=== PATIENT | female | born 1965 | race African-American/Black ===

== ENCOUNTER 2016-05-27 18:04 | Observation (INO) | payer MEDICAID ==
[2016-05-27] MEDS ORDERED: Albuterol/Ipratropium 3.0-0.5 MG/3 ML Neb Soln NEB ONE ×2 (18:07→19:14)
[2016-05-27] MEDS ORDERED: Sodium Chloride 0.9% 1,000 ML IV ONE (18:07)
[2016-05-27] MEDS ORDERED: methylPREDNISolone Sodium Succinate 125 MG/2 ML SDV IVPUSH ONE (18:08)
[2016-05-27] MEDS ORDERED: Sodium Chloride 0.9% 2.5 ML Syringe FLUSH PRN (18:08)
[2016-05-27] MEDS ORDERED: Sodium Chloride 0.9% 10 ML Syringe FLUSH PRN (18:08)
--- NOTE | 2016-05-27 18:17 | EDM.PDOC ---
ED HISTORY OF PRESENT ILLNESS - General Chief Complaint: Respiratory Problem Stated Complaint: HARD TIME BREATHING Time Seen by Provider: 05/27/16 18:06 - History of Present Illness INITIAL COMMENTS - FREE TEXT/NARRATIVE: HISTORY AND PHYSICAL: History of present illness: The patient is a 50-year-old female with no stated medical problems, either cardiac or pulmonary, with a long-standing history of tobacco use and quit for one month but recently restarted smoking over the last one week. Patient states she has been having shortness of breath and intermittent dry hacking and spastic cough even before she stoped smoking which is why she tried to quit. She says that her shortness of breath would be waxing and waning in intensity and the cough also waxes and wanes. She states that over the last 24-48 hours it has worsened and she is much tighter and has much more difficulty moving air and has bilateral chest discomfort with her breathing. She has had no leg pain , calf tenderness or leg asymmetry no fevers no chills no sore throat or runny nose. The cough is nonproductive and she says that last night she got into a spasm of coughing that lasted seemingly for a very long time. Patient states she also feels like her abdomen is slightly bloated but she is not having any vomiting and but she has had some issues with constipation. She has no kidney function issues that she is aware of and has been passing her urine normally. Patient admits that her blood pressure has been on the high side in the past but she does not take medication and has not seen a doctor in many years. She currently denies any headache neurosensory changes in her extremities or weakness in her extremities. She has no neck or back pain. Patient admits that she drinks a lot of caffeine and eats a lot of salt. The patient denies drug use except occasional marijuana and does drink wine several times per week but denies any use today. Review of systems: As per history of present illness and below otherwise all systems reviewed and negative. Past medical history: As per history of present illness and as reviewed below otherwise noncontributory. Surgical history: As per history of present illness and as reviewed below otherwise noncontributory. Social history: No reported history of drug or alcohol abuse. Family history: As per history of present illness and as reviewed below otherwise noncontributory. Physical exam: General: Well-developed well-nourished female who speaks with some breathlessness but no hoarseness and was somewhat tearful and soft-spoken Vital signs have been noted by me. HEENT: Atraumatic, normocephalic, pupils reactive, negative for conjunctival pallor or scleral icterus, mucous membranes moist, throat clear, neck supple, nontender, trachea midline. No cervical adenopathy or nuchal rigidity Lungs: Very diminished breath sounds throughout all garza with tight expiratory wheeze heard in the bases right greater than left. There is some minimal assessment muscle use and work of breathing, breath sounds equal bilaterally, chest nontender. Heart: S1S2, regular rhythm and slightly tachycardic rate of my evaluation, negative for clicks, rubs, or JVD. Abdomen: Soft, nondistended, nontender. There is no rebound or guarding and bowel sounds are hypoactive but there is no tympany on percussion Negative for masses or hepatosplenomegaly. Negative for costovertebral tenderness. Pelvis: Stable nontender. Genitourinary: Deferred. Rectal: Deferred. Extremities: Atraumatic, negative for cords or calf pain. Neurovascular unremarkable. No pedal edema or leg asymmetry Neuro: Awake, alert, oriented. Cranial nerves II through XII unremarkable. Cerebellum unremarkable. Motor and sensory unremarkable throughout. Exam nonfocal. Diagnostics: EKG chest x-ray CBC CMP troponin lactic acid alcohol level but cultures as indicated BNP Therapeutics: IV O2 monitor duo neb Solu-Medrol IV fluids 0: The patient just returned from x-ray and I have reevaluated her; she is still very tight with her air exchange but she is more open and has a looser cough but still has some fine expiratory wheezing and tight air exchange. She does feel better and we will continue with our workup. I told her that I have a very low threshold for admission due to her presentation and examination. 190: Case was discussed with our hospitalist Dr. Jovel who agrees for admission and states that he will address her blood pressure on this admission after he gets the remainder of her blood work. I discussed this care plan with the patient who is agreeable and we will give her another duo neb. Impression: Dyspnea/ bronchospasm/bronchitis, hypertension Definitive disposition and diagnosis as appropriate pending reevaluation and review of above. 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: Musculoskeletal History: Reports: None Neurological History: Reports: None Psychiatric History: Reports: Anxiety Endocrine/Metabolic History: Reports: None Hematologic History: Reports: None Immunologic History: Reports: None Oncologic (Cancer) History: Reports: None Dermatologic History: Reports: None - Infectious Disease History Infectious Disease History: Reports: None - Past Surgical History Female Surgical History: Reports: section Social & Family History - Family History Family Medical History: Noncontributory - Tobacco Use Smoking Status *Q: Current Every Day Smoker Years of Tobacco use: 10 Packs/Tins Daily: 1 - Caffeine Use Caffeine Use: Reports: Coffee, Tea - Recreational Drug Use Recreational Drug Use: No ED ROS GENERAL - Review of Systems Review Of Systems: ROS reveals no pertinent complaints other than HPI. ED EXAM, GENERAL - Physical Exam Exam: See Below (See dictation) Course - Vital Signs Last Recorded V/S: Last Vital Signs Temp 36.4 C 05/27/16 18:32 Pulse 115 H 05/27/16 18:32 Resp 20 05/27/16 18:32 BP 181/131 H 05/27/16 18:32 Pulse Ox 97 05/27/16 18:32 - Orders/Labs/Meds Orders: Active Orders 24 hr Category Date Time Status Cardiac Monitoring [RC] . DIRECTED Care 05/27/16 18:07 Active EKG Documentation Completion [RC] STAT Care 05/27/16 18:07 Active Oxygen Therapy, ED [RC] ASDIRECTED Care 05/27/16 18:07 Active Pulse Oximetry [RC] ASDIRECTED Care 05/27/16 18:07 Active RT Aerosol Therapy [RC] ASDIRECTED Care 05/27/16 18:08 Active Chest 2V [CR] Stat Exams 05/27/16 18:07 Taken COMPREHENSIVE METABOLIC PN,CMP [CHEM] Stat Lab 05/27/16 18:30 Received ETHANOL BLOOD MEDICAL [CHEM] Stat Lab 05/27/16 18:30 Received Sodium Chloride 0.9% [Saline Flush] Med 05/27/16 18:08 Active 10 ml FLUSH ASDIRECTED PRN Sodium Chloride 0.9% [Saline Flush] Med 05/27/16 18:08 Active 2.5 ml FLUSH ASDIRECTED PRN Saline Lock Insert [OM.PC] Stat Oth 05/27/16 18:07 Ordered Medication Orders Sodium Chloride (Saline Flush) 10 ml FLUSH ASDIRECTED PRN PRN Reason: Keep Vein Open Sodium Chloride (Saline Flush) 2.5 ml FLUSH ASDIRECTED PRN PRN Reason: Keep Vein Open Labs: Laboratory Tests 05/27/16 05/27/16 05/27/16 Range/Units 18:30 18:30 18:30 WBC 6.91 (4.0-11.0) K/uL RBC 5.12 (4.30-5.90) M/uL Hgb 14.5 (12.0-16.0) g/dL Hct 46.0 (36.0-46.0) % MCV 89.8 (80.0-98.0) fL MCH 28.3 (27.0-32.0) pg MCHC 31.5 (31.0-37.0) g/dL RDW Std Deviation 48.1 (28.0-62.0) fl RDW Coeff of Sherman 15 (11.0-15.0) % Plt Count 237 (150-400) K/uL MPV 10.60 (7.40-12.00) fL Neut % (Auto) 52.5 (48.0-80.0) % Lymph % (Auto) 41.0 H (16.0-40.0) % Beckham % (Auto) 4.5 (0.0-15.0) % Eos % (Auto) 1.7 (0.0-7.0) % Baso % (Auto) 0.3 (0.0-1.5) % Neut # (Auto) 3.6 (1.4-5.7) K/uL Lymph # (Auto) 2.8 H (0.6-2.4) K/uL Beckham # (Auto) 0.3 (0.0-0.8) K/uL Eos # (Auto) 0.1 (0.0-0.7) K/uL Baso # (Auto) 0.0 (0.0-0.1) K/uL Nucleated RBC % 0.0 /100WBC Nucleated RBCs # 0 K/uL Lactate 1.4 (0.20-2.00) mmol/L Troponin I < 0.10 (0.0-0.29) NG/ML B-Natriuretic Peptide (<100) PG/ML 05/27/16 Range/Units 18:30 WBC (4.0-11.0) K/uL RBC (4.30-5.90) M/uL Hgb (12.0-16.0) g/dL Hct (36.0-46.0) % MCV (80.0-98.0) fL MCH (27.0-32.0) pg MCHC (31.0-37.0) g/dL RDW Std Deviation (28.0-62.0) fl RDW Coeff of Sherman (11.0-15.0) % Plt Count (150-400) K/uL MPV (7.40-12.00) fL Neut % (Auto) (48.0-80.0) % Lymph % (Auto) (16.0-40.0) % Beckham % (Auto) (0.0-15.0) % Eos % (Auto) (0.0-7.0) % Baso % (Auto) (0.0-1.5) % Neut # (Auto) (1.4-5.7) K/uL Lymph # (Auto) (0.6-2.4) K/uL Beckham # (Auto) (0.0-0.8) K/uL Eos # (Auto) (0.0-0.7) K/uL Baso # (Auto) (0.0-0.1) K/uL Nucleated RBC % /100WBC Nucleated RBCs # K/uL Lactate (0.20-2.00) mmol/L Troponin I (0.0-0.29) NG/ML B-Natriuretic Peptide 19 (<100) PG/ML Meds: Medications Generic Name Dose Route Start Last Admin Trade Name Freq PRN Reason Stop Dose Admin Sodium Chloride 10 ml 05/27/16 18:08 Saline Flush FLUSH ASDIRECTED PRN Keep Vein Open Sodium Chloride 2.5 ml 05/27/16 18:08 Saline Flush FLUSH ASDIRECTED PRN Keep Vein Open Discontinued Medications Generic Name Dose Route Start Last Admin Trade Name Ramiro PRN Reason Stop Dose Admin Albuterol/Ipratropium 3 ml 05/27/16 18:07 05/27/16 18:12 Duoneb 3.0-0.5 Mg/3 Ml NEB 05/27/16 18:08 3 ml ONETIME ONE Administration Sodium Chloride 1,000 mls @ 999 mls/hr 05/27/16 18:07 05/27/16 18:25 Normal Saline IV 05/27/16 19:07 999 mls/hr STAT ONE Administration Methylprednisolone Sodium Succinate 125 mg 05/27/16 18:08 05/27/16 18:25 Solu-Medrol IVPUSH 05/27/16 18:09 125 mg ONETIME ONE Administration Departure - Departure Time of Disposition: 19:13 Disposition: Refer to Observation Condition: good Clinical Impression: Bronchospasm, Dyspnea Forms: ED Department Discharge - My Orders Last 24 Hours: My Active Orders 05/27/16 18:07 Cardiac Monitoring [RC] . DIRECTED EKG Documentation Completion [RC] STAT Oxygen Therapy, ED [RC] ASDIRECTED Pulse Oximetry [RC] ASDIRECTED Chest 2V [CR] Stat Saline Lock Insert [OM.PC] Stat 05/27/16 18:08 RT Aerosol Therapy [RC] ASDIRECTED Sodium Chloride 0.9% [Saline Flush] 10 ml FLUSH ASDIRECTED PRN Sodium Chloride 0.9% [Saline Flush] 2.5 ml FLUSH ASDIRECTED PRN 05/27/16 18:30 COMPREHENSIVE METABOLIC PN,CMP [CHEM] Stat ETHANOL BLOOD MEDICAL [CHEM] Stat - Assessment/Plan Last 24 Hours: My Active Orders 05/27/16 18:07 Cardiac Monitoring [RC] . DIRECTED EKG Documentation Completion [RC] STAT Oxygen Therapy, ED [RC] ASDIRECTED Pulse Oximetry [RC] ASDIRECTED Chest 2V [CR] Stat Saline Lock Insert [OM.PC] Stat 05/27/16 18:08 RT Aerosol Therapy [RC] ASDIRECTED Sodium Chloride 0.9% [Saline Flush] 10 ml FLUSH ASDIRECTED PRN Sodium Chloride 0.9% [Saline Flush] 2.5 ml FLUSH ASDIRECTED PRN 05/27/16 18:30 COMPREHENSIVE METABOLIC PN,CMP [CHEM] Stat ETHANOL BLOOD MEDICAL [CHEM] Stat
[2016-05-27 19:12] LABS: CHLORIDE,CL 112 mmol/L (98-110); SODIUM,NA 144 mmol/L (136-146)
[2016-05-27] MEDS ORDERED: Enoxaparin 40 MG/0.4 ML Syringe SUBCUT SCH (21:00)
--- NOTE | 2016-05-27 21:03 | PCM.HP ---
[id number] yo female who complains of shortness of breath. For the past several months she reports increasing exertional dyspnea. She also has 10 lb weight gain. She reports paroxysmal nocturnal dyspnea. She denies any cough. She reports her chest feels tight. She has a history of hypertension but her doctor took her off lisinopril last year as she was told she did not need it anymore. She tried qiving up smoking last month but did not notice any improvement so went back to smoking. chest thightness Pain Score (Numeric/FACES): 0 - Related Data Allergies/Adverse Reactions: Allergies Allergy/AdvReac Type Severity Reaction Status Date / Time No Known Allergies Allergy Verified 05/27/16 18:25 Home Medications: Home Meds Albuterol [IJD: Ventolin HFA] 1 puff INH .TWICE DAILY #18 gm 05/28/16 [Rx] Budesonide/Formoterol Fumarate [Symbicort 160-4.5 Mcg Inhaler] 2 puff IH BID #1 canister 05/28/16 [Rx] Past Medical History - Past Health History Medical/Surgical History: Denies Medical/Surgical History HEENT History: Reports: None Cardiovascular History: Reports: Hypertension Respiratory History: Reports: None Gastrointestinal History: Reports: None Genitourinary History: Reports: None [employer] History: Reports: Other OB/BYN History: 2 CS Musculoskeletal History: Reports: None Neurological History: Reports: None Psychiatric History: Reports: Anxiety Endocrine/Metabolic History: Reports: None Hematologic History: Reports: None Immunologic History: Reports: None Oncologic (Cancer) History: Reports: None Dermatologic History: Reports: None - Infectious Disease History Infectious Disease History: Reports: None - Past Surgical History Female Surgical History: Reports: section Social & Family History - Family History Family Medical History: Noncontributory - Tobacco Use Smoking Status *Q: Current Every Day Smoker Years of Tobacco use: 10 Packs/Tins Daily: 1 - Caffeine Use Caffeine Use: Reports: Coffee, Tea - Recreational Drug Use Recreational Drug Use: No H&P Review of Systems - Review of Systems: Review Of Systems: See Below General: Reports: no symptoms HEENT: Reports: no symptoms Pulmonary: Reports: Shortness of Breath, Wheezing Cardiovascular: Reports: dyspnea on exertion, orthopnea. Denies: edema Gastrointestinal: Reports: No symptoms Genitourinary: Reports: no symptoms Musculoskeletal: Reports: no symptoms Skin: Reports: no symptoms Psychiatric: Reports: no symptoms Neurological: Reports: No Symptoms Hematologic/Lymphatic: Reports: no symptoms Immunologic: Reports: no symptoms Exam - Exam Exam: See Below - Vital Signs Vital Signs: Last Vital Signs Temp 36.4 C 05/27/16 18:32 Pulse 115 H 05/27/16 18:32 Resp 20 05/27/16 18:32 BP 181/131 H 05/27/16 18:32 Pulse Ox 97 05/27/16 18:32 Weight: 86.6 kg - Exam General: alert, oriented, 4 Lungs: Clear to auscultation, Normal respiratory effort Cardiovascular: regular rate, regular rhythm Abdomen: normal bowel sounds, soft Extremities: normal inspection. No: edema Skin: warm, dry, intact - Patient Data Result Diagrams: 05/28/16 05:03 05/28/16 05:03 *Q Meaningful Use (ADM) - VTE *Q VTE Criteria *Q: - Stroke *Q Stroke Criteria *Q: - AMI *Q AMI Criteria *Q: Problem List Initiated/Reviewed/Updated: Yes Orders Last 24hrs: Active Orders 24 hr Category Date Time Status RT Aerosol Therapy [RC] ASDIRECTED Care 05/27/16 20:56 Ordered Echo 2D wo Cont [US] Routine Exams 05/27/16 20:57 Ordered Albuterol/Ipratropium [DuoNeb 3.0-0.5 MG/3 ML] Med 05/28/16 00:00 Ordered 3 ml NEB Q6HRRT methylPREDNISolone Sod Succ [Solu-MEDROL] Med 05/27/16 21:00 Ordered 125 mg IVPUSH Q6H Medication Orders Albuterol/Ipratropium (Duoneb 3.0-0.5 Mg/3 Ml) 3 ml NEB Q6HRRT [facility] Methylprednisolone Sodium Succinate (Solu-Medrol) 125 mg IVPUSH Q6H [facility] Sodium Chloride (Saline Flush) 10 ml FLUSH ASDIRECTED PRN PRN Reason: Keep Vein Open Sodium Chloride (Saline Flush) 2.5 ml FLUSH ASDIRECTED PRN PRN Reason: Keep Vein Open Assessment/Plan Comment:: 50 yo female who presents with dyspnea. Will treat for COPD with solumedrol and duonebs. Echocardiogram ordered.
[2016-05-27] MEDS: methylPREDNISolone Sodium Succinate 125 MG/2 ML SDV IVPUSH SCH (21:38)
[2016-05-28] MEDS: Albuterol/Ipratropium 3.0-0.5 MG/3 ML Neb Soln NEB SCH ×3 (00:18→11:10)
[2016-05-28] MEDS: methylPREDNISolone Sodium Succinate 125 MG/2 ML SDV IVPUSH SCH ×2 (02:17→08:23)
[2016-05-28 06:31] LABS: CHLORIDE,CL 108 mmol/L (98-110); SODIUM,NA 140 mmol/L (136-146)
[2016-05-28] MEDS ORDERED: Flu Vaccine 2016-17(36Mos+)/PF 60 MCG/0.5 ML Syringe IM ONE (12:00)
--- NOTE | 2016-05-28 12:28 | CR ---
EXAM DATE: 05/27/16 PATIENT'S AGE: 50 Patient: ANNIE BARRAGAN Facility: [place], [place] Site . Site : 1965 Study: XRay Chest [id number]/9/[id number] 6:36:05 PM Ordering Physician: Khalif Morales Final Report: HISTORY: Shortness of breath. Comparison: None. Findings: The lungs are clear. Costophrenic angles sharp. Heart size and pulmonary vascularity within normal limits. Dictated by Raquel Rinaldi MD @ May 27 2016 7:05PM (Electronic Signature) Report Signed by Proxy and Original Signed Document filed in the Medical Record. MTDD
[2016-05-28 16:05] VITALS: BP 148/88
--- NOTE | 2016-05-30 16:58 | PCM.DCSUM1 ---
<Fermin Garcia - Last Filed: 05/30/16 16:53> Discharge Summary - Hospital Course Free Text/Narrative:: Admission diagnosis: 1. Shortness of breath 2. Hypertension Discharge diagnosis: 1. Shortness of breath, improved 2. Hypertension, improved 50 year old female admitted with shortness of breath. Patient given multiple doses of solumedrol IV and duoneb treatments. CXR was unremarkable. Patient Required 2.5L NC on admission but improved with previously mentioned treatments until she was >90% on RA. ECHO showed 65-70% EF and trace tricuspid regurgitation. CBC and CMP unremarkable. BNP WNL and troponin was negative. She was hypertensive on admission, 181/131, but this improved to 148/88 at discharge. No antihypertensives were given during admission. Patient reported feeling much better at time of discharge. - Discharge Data Discharge Date: 05/30/16 Discharge Disposition: Home, Self-Care 01 Condition: Fair - Patient Instructions Diet: Usual Diet as Tolerated Activity: As Tolerated Driving: May Drive Today Showering/Bathing: May Shower Notify Provider of: Fever, Increased Pain, Nausea and/or Vomiting Other/Special Instructions: ECHO results will be available at f/u visit with Dr. Garcia - Discharge Plan Prescriptions/Med Rec: Albuterol [IJD: Ventolin HFA] 1 puff INH .TWICE DAILY #18 gm Budesonide/Formoterol Fumarate [Symbicort 160-4.5 Mcg Inhaler] 2 puff IH BID #1 canister Home Medications: Home Meds Albuterol [IJD: Ventolin HFA] 1 puff INH .TWICE DAILY #18 gm 05/28/16 [Rx] Budesonide/Formoterol Fumarate [Symbicort 160-4.5 Mcg Inhaler] 2 puff IH BID #1 canister 05/28/16 [Rx] Patient Handouts: Budesonide; Formoterol Inhalation, Shortness of Breath, Easy- to-Read, Albuterol inhalation aerosol, Bronchospasm, Adult, [id number] Referrals: [facility] [Outside] - Discharge Summary/Plan Comment DC Time >30 min.: No Discharge Summary/Plan Comment: Admission diagnosis: 1. Shortness of breath 2. Hypertension Discharge diagnosis: 1. Shortness of breath, improved 2. Hypertension, improved 50 year old female admitted with shortness of breath. Patient given multiple doses of solumedrol IV and duoneb treatments. CXR was unremarkable. Patient Required 2.5L NC on admission but improved with previously mentioned treatments until she was >90% on RA. ECHO showed 65-70% EF and trace tricuspid regurgitation. CBC and CMP unremarkable. BNP WNL and troponin was negative. She was hypertensive on admission, 181/131, but this improved to 148/88 at discharge. No antihypertensives were given during admission. Patient reported feeling much better at time of discharge. Discharge plan: 1. Presribed albuterol inhaler and symbicort inhaler 2. Prescribed steroid taper over 12 days 3. Encouraged smoking cessation 4. f/u with Dr. Garcia on June 06. Discuss HTN medications. - Patient Data Vitals - Most Recent: Last Vital Signs Temp 97.3 F 05/28/16 08:00 Pulse 110 H 05/28/16 08:00 Resp 16 05/28/16 08:00 BP 148/88 H 05/28/16 08:00 Pulse Ox 97 05/28/16 08:00 Weight - Most Recent: 86.6 kg Med Orders - Current: Current Medications Discontinued Medications Albuterol/Ipratropium (Duoneb 3.0-0.5 Mg/3 Ml) 3 ml NEB ONETIME ONE Stop: 05/27/16 18:08 Last Admin: 05/27/16 18:12 Dose: 3 ml Albuterol/Ipratropium (Duoneb 3.0-0.5 Mg/3 Ml) 3 ml NEB ONETIME ONE Stop: 05/27/16 19:15 Last Admin: 05/27/16 19:20 Dose: 3 ml Albuterol/Ipratropium (Duoneb 3.0-0.5 Mg/3 Ml) 3 ml NEB Q6HRRT [facility] Last Admin: 05/28/16 11:10 Dose: 3 ml Enoxaparin Sodium (Lovenox) 40 mg SUBCUT Q24H [facility] Last Admin: 05/27/16 21:38 Dose: 40 mg Sodium Chloride (Normal Saline) 1,000 mls @ 999 mls/hr IV STAT ONE Stop: 05/27/16 19:07 Last Admin: 05/27/16 18:25 Dose: 999 mls/hr Influenza Virus Vaccine (Fluzone/Fluarix Vaccine) 60 mcg IM .ONCE ONE Stop: 05/28/16 12:01 Methylprednisolone Sodium Succinate (Solu-Medrol) 125 mg IVPUSH ONETIME ONE Stop: 05/27/16 18:09 Last Admin: 05/27/16 18:25 Dose: 125 mg Methylprednisolone Sodium Succinate (Solu-Medrol) 125 mg IVPUSH Q6H [facility] Last Admin: 05/28/16 08:23 Dose: 125 mg Sodium Chloride (Saline Flush) 10 ml FLUSH ASDIRECTED PRN PRN Reason: Keep Vein Open Sodium Chloride (Saline Flush) 2.5 ml FLUSH ASDIRECTED PRN PRN Reason: Keep Vein Open *Q Meaningful Use (DIS) - VTE *Q VTE Criteria *Q: - Stroke *Q Stroke Criteria *Q: - AMI *Q AMI Criteria *Q: <Igor Jovel - Last Filed: 05/31/16 11:51> - Patient Data Vitals - Most Recent: Last Vital Signs Temp 36.3 C 05/28/16 08:00 Pulse 110 H 05/28/16 08:00 Resp 16 05/28/16 08:00 BP 148/88 H 05/28/16 08:00 Pulse Ox 97 05/28/16 08:00 Med Orders - Current: Current Medications Discontinued Medications Albuterol/Ipratropium (Duoneb 3.0-0.5 Mg/3 Ml) 3 ml NEB ONETIME ONE Stop: 05/27/16 18:08 Last Admin: 05/27/16 18:12 Dose: 3 ml Albuterol/Ipratropium (Duoneb 3.0-0.5 Mg/3 Ml) 3 ml NEB ONETIME ONE Stop: 05/27/16 19:15 Last Admin: 05/27/16 19:20 Dose: 3 ml Albuterol/Ipratropium (Duoneb 3.0-0.5 Mg/3 Ml) 3 ml NEB Q6HRRT [facility] Last Admin: 05/28/16 11:10 Dose: 3 ml Enoxaparin Sodium (Lovenox) 40 mg SUBCUT Q24H [facility] Last Admin: 05/27/16 21:38 Dose: 40 mg Sodium Chloride (Normal Saline) 1,000 mls @ 999 mls/hr IV STAT ONE Stop: 04/09/17 19:07 Last Admin: 05/27/16 18:25 Dose: 999 mls/hr Influenza Virus Vaccine (Fluzone/Fluarix Vaccine) 60 mcg IM .ONCE ONE Stop: 05/28/16 12:01 Methylprednisolone Sodium Succinate (Solu-Medrol) 125 mg IVPUSH ONETIME ONE Stop: 05/27/16 18:09 Last Admin: 05/27/16 18:25 Dose: 125 mg Methylprednisolone Sodium Succinate (Solu-Medrol) 125 mg IVPUSH Q6H [facility] Last Admin: 05/28/16 08:23 Dose: 125 mg Sodium Chloride (Saline Flush) 10 ml FLUSH ASDIRECTED PRN PRN Reason: Keep Vein Open Sodium Chloride (Saline Flush) 2.5 ml FLUSH ASDIRECTED PRN PRN Reason: Keep Vein Open *Q Meaningful Use (DIS) - VTE *Q VTE Criteria *Q: - Stroke *Q Stroke Criteria *Q: - AMI *Q AMI Criteria *Q: - Free Text/Narrative Note: I have examined the patient. I have discussed findings and treatment plan with resident. I agree with the assessment and plan outlined in the resident's note.
--- NOTE | 2016-05-31 13:37 | ECHO ---
EXAM DATE: 05/27/16 The echocardiogram report can be seen in this patient's EMR (Electronic Medical Record) in the Reports section. O[facility]IR[facility]
== END 2016-05-28 14:30 | disposition home or self-care (01) ==
LOC: MW.ED 18:04 → MW.MS 19:21
PROVIDERS: ADMIT Internal Medicine; ATTEND Internal Medicine
DX: R06.02 Shortness of breath (principal); I10 Essential (primary) hypertension; F17.210 Nicotine dependence, cigarettes, uncomplicated; Z79.899 Other long term (current) drug therapy
CPT/HCPCS: 36415; 71020; 80048; 80053; 83605; 83880; 84484; 85025; 93005; 93306; 94640; 94664; 96361; 96372; 96374; 96376; 99285; G0378; G0480; J1650; J2930; J7040

== ENCOUNTER → 2016-06-18 | Outpatient (CLI) | payer MEDICAID ==
[2016-06-22 14:04] LABS: HPV 16 Not Detected (NOTDET); HPV 18 Not Detected (NOTDET)
== END ==
LOC: MW.CHOBGYN 14:24
PROVIDERS: ATTEND Advanced Practice Midwife
DX: Z01.419 Encounter for gynecological examination (general) (routine) without abnormal findings (principal)
CPT/HCPCS: 87624; G0145

== ENCOUNTER → 2016-06-22 | Outpatient (CLI) | payer MEDICAID ==
[~2016-06-22] MED LIST: Albuterol 0.083% 2.5 MG/3 ML Neb Soln NEB ONE
== END | disposition home or self-care (01) ==
LOC: MW.RT 13:05
PROVIDERS: ADMIT Internal Medicine; ATTEND Family Medicine
DX: R06.02 Shortness of breath (principal); I10 Essential (primary) hypertension; F17.210 Nicotine dependence, cigarettes, uncomplicated; Z79.899 Other long term (current) drug therapy
CPT/HCPCS: 94060

== ENCOUNTER 2016-07-23 22:42 | Emergency (ER) | payer MEDICAID ==
[2016-07-23] MEDS ORDERED: Albuterol/Ipratropium 3.0-0.5 MG/3 ML Neb Soln NEB ONE (22:50)
--- NOTE | 2016-07-23 23:10 | EDM.PDOC ---
ED HPI GENERAL MEDICAL PROBLEM - General Chief Complaint: Respiratory Problem Stated Complaint: DIZZY Time Seen by Provider: 07/23/16 23:06 - History of Present Illness INITIAL COMMENTS - FREE TEXT/NARRATIVE: HISTORY AND PHYSICAL: History of present illness: Patient 51-year-old female presents with concern of shortness of breath patient has history of COPD does continue to smoke she has been compliant with her medication she denies fever chills chest pain nausea vomiting or other complaints Review of systems: As per history of present illness and below otherwise all systems reviewed and negative. Past medical history: As per history of present illness and as reviewed below otherwise noncontributory. Surgical history: As per history of present illness and as reviewed below otherwise noncontributory. Social history: No reported history of drug or alcohol abuse. Family history: As per history of present illness and as reviewed below otherwise noncontributory. Physical exam: HEENT: Atraumatic, normocephalic, pupils reactive, negative for conjunctival pallor or scleral icterus, mucous membranes moist, throat clear, neck supple, nontender, trachea midline. Lungs: Diminished bilaterally rear-ended story wheezing no rhonchi no crackles, breath sounds equal bilaterally, chest nontender. Heart: S1S2, regular, negative for clicks, rubs, or JVD. Abdomen: Soft, nondistended, nontender. Negative for masses or hepatosplenomegaly. Negative for costovertebral tenderness. Pelvis: Stable nontender. Genitourinary: Deferred. Rectal: Deferred. Extremities: Atraumatic, negative for cords or calf pain. Neurovascular unremarkable. Neuro: Awake, alert, oriented. Cranial nerves II through XII unremarkable. Cerebellum unremarkable. Motor and sensory unremarkable throughout. Exam nonfocal. Diagnostics: EKG chest x-ray CBC CMP troponin PT/INR Therapeutics: Albuterol ipratropium nebulizer Impression: #1 COPD with exacerbation #2 medical noncompliance Definitive disposition and diagnosis as appropriate pending reevaluation and review of above. - Related Data Allergies Allergy/AdvReac Type Severity Reaction Status Date / Time No Known Allergies Allergy Verified 07/23/16 22:44 Home Meds: Home Meds Albuterol [IJD: Ventolin HFA] 1 puff INH .TWICE DAILY #18 gm 05/28/16 [Rx] Budesonide/Formoterol Fumarate [Symbicort 160-4.5 Mcg Inhaler] 2 puff IH BID #1 canister 05/28/16 [Rx] Tiotropium [Spiriva HandiHaler] 18 mcg INH DAILY 07/23/16 [History] Past Medical History - Past Health History Medical/Surgical History: Denies Medical/Surgical History HEENT History: Reports: None Cardiovascular History: Reports: Hypertension Respiratory History: Reports: COPD Gastrointestinal History: Reports: None Genitourinary History: Reports: None WATER [employer]AXI [employer]TAIN History: Reports: Other OB/BYN History: 2 CS Musculoskeletal History: Reports: None Neurological History: Reports: None Psychiatric History: Reports: Anxiety Endocrine/Metabolic History: Reports: None Hematologic History: Reports: None Immunologic History: Reports: None Oncologic (Cancer) History: Reports: None Dermatologic History: Reports: None - Infectious Disease History Infectious Disease History: Reports: Chicken Pox - Past Surgical History Head Surgeries/Procedures: Reports: None Female Surgical History: Reports: Section Social & Family History - Family History Family Medical History: Noncontributory Cardiac: Reports: Hypertension Respiratory: Reports: None Endocrine/Metabolic: Reports: Diabetes, type II Hematologic: Reports: Other (See Below) Other Hematologic Family History: Leukemia Oncologic: Reports: Leukemia - Tobacco Use Smoking Status *Q: Current Some Day Smoker Years of Tobacco use: 12 Packs/Tins Daily: 0.2 Used Tobacco, but Quit: No Second Hand Smoke Exposure: Yes - Caffeine Use Caffeine Use: Reports: Coffee, Tea - Recreational Drug Use Recreational Drug Use: Yes Recreational Drug Type: Reports: Marijuana/Hashish Recreational Drug Use Frequency: Socially ED ROS GENERAL - Review of Systems Review Of Systems: ROS reveals no pertinent complaints other than HPI. ED EXAM, GENERAL - Physical Exam Exam: See Below (See dictation) Course - Vital Signs Last Recorded V/S: Last Vital Signs Temp 36.4 C 07/23/16 22:45 Pulse 101 H 07/23/16 23:52 Resp 18 07/23/16 23:52 BP 138/78 07/23/16 23:52 Pulse Ox 95 07/23/16 23:52 - Orders/Labs/Meds Orders: Active Orders 24 hr Category Date Time Status EKG Documentation Completion [RC] STAT Care 07/23/16 22:50 Active RT Aerosol Therapy [RC] ASDIRECTED Care 07/23/16 22:50 Active Chest 1V Frontal [CR] Stat Exams 07/23/16 22:50 Taken Labs: Laboratory Tests 07/23/16 07/23/16 07/23/16 Range/Units 22:56 22:56 22:56 WBC 6.89 (4.0-11.0) K/uL RBC 4.95 (4.30-5.90) M/uL Hgb 14.4 (12.0-16.0) g/dL Hct 44.6 (36.0-46.0) % MCV 90.1 (80.0-98.0) fL MCH 29.1 (27.0-32.0) pg MCHC 32.3 (31.0-37.0) g/dL RDW Std Deviation 45.8 (28.0-62.0) fl RDW Coeff of [place] 14 (11.0-15.0) % Plt Count 229 (150-400) K/uL MPV 10.60 (7.40-12.00) fL Neut % (Auto) 68.4 (48.0-80.0) % Lymph % (Auto) 24.4 (16.0-40.0) % Major % (Auto) 4.4 (0.0-15.0) % Eos % (Auto) 2.5 (0.0-7.0) % Baso % (Auto) 0.3 (0.0-1.5) % Neut # (Auto) 4.7 (1.4-5.7) K/uL Lymph # (Auto) 1.7 (0.6-2.4) K/uL Major # (Auto) 0.3 (0.0-0.8) K/uL Eos # (Auto) 0.2 (0.0-0.7) K/uL Baso # (Auto) 0.0 (0.0-0.1) K/uL Nucleated RBC % 0.0 /100WBC Nucleated RBCs # 0 K/uL Sodium 142 (136-146) mmol/L Potassium 3.9 (3.5-5.1) mmol/L Chloride 110 (98-110) mmol/L Carbon Dioxide 20 L (21-31) mmol/L BUN 12 (6.0-23.0) mg/dL Creatinine 1.0 (0.6-1.5) mg/dL Est Cr Clr Drug Dosing 52.64 mL/min Estimated GFR (MDRD) > 60.0 ml/min Glucose 115 H (60-110) mg/dL Calcium 9.2 (8.8-10.8) mg/dL Total Bilirubin 0.4 (0.1-1.5) mg/dL AST 16 (5-40) IU/L ALT 17 (8-54) IU/L Alkaline Phosphatase 50 (40-150) CK-MB (CK-2) 1.8 (0-6.6) ng/ml Troponin I < 0.10 (0.0-0.29) NG/ML Total Protein 7.9 (6.0-8.0) g/dL Albumin 4.3 (3.5-5.0) g/dL Globulin 3.6 H (2.0-3.5) g/dL Albumin/Globulin Ratio 1.2 L (1.3-2.8) Meds: Medications Discontinued Medications Generic Name Dose Route Start Last Admin Trade Name Freq PRN Reason Stop Dose Admin Albuterol/Ipratropium 3 ml 07/23/16 22:50 07/23/16 22:59 Duoneb 3.0-0.5 Mg/3 Ml NEB 07/23/16 22:51 3 ml ONETIME ONE Administration Departure - Departure Time of Disposition: 22:00 Disposition: Home, Self-Care 01 Condition: good Clinical Impression: COPD (chronic obstructive pulmonary disease) - Discharge Information Instructions: Chronic Obstructive Pulmonary Disease, [id number] Referrals: PCP,Unknown [Primary Care Provider] - Forms: ED Department Discharge Additional Instructions: The following information is given to patients seen in the emergency department who are being discharged to home. This information is to outline your options for follow-up care. We provide all patients seen in our emergency department with a follow-up referral. The need for follow-up, as well as the timing and circumstances, are variable depending upon the specifics of your emergency department visit. If you don't have a primary care physician on staff, we will provide you with a referral. We always advise you to contact your personal physician following an emergency department visit to inform them of the circumstance of the visit and for follow-up with them and/or the need for any referrals to a consulting specialist. The emergency department will also refer you to a specialist when appropriate. This referral assures that you have the opportunity for followup care with a specialist. All of these measure are taken in an effort to provide you with optimal care, which includes your followup. Under all circumstances we always encourage you to contact your private physician who remains a resource for coordinating your care. When calling for followup care, please make the office aware that this follow-up is from your recent emergency room visit. If for any reason you are refused follow-up, please contact the [facility] emergency department at and asked to speak to the emergency department charge nurse. Medrol Dosepak and azithromycin as prescribed continue current medications follow primary medical doctor 1-2 days return as needed as discussed - My Orders Last 24 Hours: My Active Orders 07/23/16 22:50 EKG Documentation Completion [RC] STAT RT Aerosol Therapy [RC] ASDIRECTED Chest 1V Frontal [CR] Stat - Assessment/Plan Last 24 Hours: My Active Orders 07/23/16 22:50 EKG Documentation Completion [RC] STAT RT Aerosol Therapy [RC] ASDIRECTED Chest 1V Frontal [CR] Stat
[2016-07-23 23:25] LABS: CHLORIDE,CL 110 mmol/L (98-110); SODIUM,NA 142 mmol/L (136-146)
[2016-07-23 23:55] VITALS: BP 138/78
--- NOTE | 2016-07-24 10:21 | CR ---
EXAM DATE: 07/23/16 PATIENT'S AGE: 51 Patient: ANNIE BARRAGAN Facility: [place], [place] Site . Site : 1965 Study: XRay Chest [id number] 11:17:06 PM Ordering Physician: Doctor Pelletier Final Report: INDICATION: SOB, hx of COPD TECHNIQUE: Chest radiograph 1 view COMPARISON: 05/27/16 FINDINGS: Cardiovascular and mediastinum: The cardiac silhouette is normal in appearance and size. Mediastinum is within normal limits. Lungs and pleural space: Bilateral hyperinflation is present and suggestive of pulmonary emphysema. No sign of pleural effusion. No pneumothorax is seen. Bones and soft tissues: No significant findings. IMPRESSION: 1. Bilateral hyperinflation is present and suggestive of pulmonary emphysema. Dictated by: Jordin cEhols MD @ 07/23/2016 23:26:59 (Electronic Signature) Report Signed by Proxy. [email or web address]
== END 2016-07-23 23:54 | disposition home or self-care (01) ==
LOC: MW.ED 22:42
DX: J44.1 Chronic obstructive pulmonary disease with (acute) exacerbation (principal); I10 Essential (primary) hypertension; F17.210 Nicotine dependence, cigarettes, uncomplicated; Z91.14 Patient's other noncompliance with medication regimen; Z79.899 Other long term (current) drug therapy; Z98.890 Other specified postprocedural states
CPT/HCPCS: 36415; 71010; 71010-26; 80053; 82553; 84484; 85025; 93005; 99283; 99285-25